=== PATIENT | female | born 1970 | race Caucasian/White ===

== ENCOUNTER → 2021-09-03 | Outpatient (CLI) | payer OTHER ==
[~2021-09-03] MED LIST: MACROBID 100 M100 MG PO; ZOFRAN ODT 4 MG4 MG SL
[2021-09-03 07:44] LABS: HEMOGLOBIN 14.9 gm/dl (12.3-15.3); RED BLOOD COUNT 5.03 M/UL (4.00-5.10); WHITE BLOOD COUNT 7.3 K/UL (4.5-11.0)
[2021-09-03 08:23] LABS: BUN/CREATININE RATIO 19 (0-10)
== END ==
LOC: LAB 06:46
PROVIDERS: Nurse Practitioner Family
DX: R73.9 Hyperglycemia, unspecified (principal); R53.83 Other fatigue; E55.9 Vitamin D deficiency, unspecified; D53.8 Other specified nutritional anemias; I10 Essential (primary) hypertension; E78.5 Hyperlipidemia, unspecified
CPT/HCPCS: 36415; 80053; 80061; 82607; 82652; 83036; 84439; 84443; 85025

== ENCOUNTER → 2021-10-03 | Outpatient (CLI) | payer OTHER | LOC: MRI 09:00 → US 10-09 09:30 → MRI 10-09 10:00 | DX: R55 Syncope and collapse (principal); I65.21 Occlusion and stenosis of right carotid artery | CPT/HCPCS: 70551; 93880 ==